=== PATIENT | female | born 1995 | race Caucasian/White ===

== ENCOUNTER 2021-09-20 12:38 | Outpatient (CLI) | payer MEDICAID, SELFPAY ==
--- NOTE | ~2021-09-20 | US_ITS ---
EXAMINATION: US OB /maternal detail DATE: 09/20/2021 14:34 INDICATION: Second trimester anatomic survey TECHNIQUE: Real-time ultrasound of the pelvis was performed. COMPARISON: None. FINDINGS: There is a single living fetus in variable presentation. The placenta is anterior. heart rate i s 153 beats per minute (bpm). cardiac activity and movement are noted. The amniotic flui d index is subjectively normal. The following anatomy was identified as normal: 4 chamber heart 3 vessel cord cord insertion kidneys urinary bladder stomach spine diaphragm ventricles cisterna magna cerebellum The following biometric data were obtained: Biparietal diameter (BPD): 3.9 cm; head circumference (HC): 17.5 cm; abdominal circumference (AC): 15 .5 cm; femur length (FL): 3.3 cm. These measurements are concordant. Estimated weight is 342 g +/- 51 g, which correlates with the 52nd percentile when 02/06/2022 is used as estimated date of delivery. As single measurements, these parameters are each equal to the following estimated gestational ages w ith ranges of +/- 2 standard deviations: BPD: 17 weeks 6 days +/- 1 weeks 1 days. HC: 20 weeks 0 days +/- 1 weeks 3 days. AC: 20 weeks 5 days +/- 2 weeks 0 days. FL: 20 weeks 1 days +/- 1 weeks 6 days. estimated gestational age based solely on measurements from this exam is 19 weeks 5 days +/- 1 weeks 3 days. IMPRESSION: 1. Single living fetus in variable presentation. 2. Estimated weight is 342 g +/- 51 g, which correlates with the 52nd percentile when 02/06/2022 is used as estimated date of delivery. Reviewed, dictated and finalized at location F. IMPRESSION: 1. Single living fetus in variable presentation. 2. Estimated weight is 342 g +/- 51 g, which correlates with the 52nd per centile when 02/06/2022 is used as estimated date of delivery.
== END 2021-09-20 12:39 | disposition home or self-care (01) ==
PROVIDERS: Visit Provider Obstetrics & Gynecology Gynecologic Oncology
DX: Z36.9 Encounter for antenatal screening, unspecified (principal); Z3A.19 19 weeks gestation of pregnancy
CPT/HCPCS: 76805